=== PATIENT | male | born 1940 | race Two or more races ===

== ENCOUNTER → 2018-02-21 | Outpatient (CLI) | payer OTHER ==
[~2018-02-21] MED LIST: GADOBUTROL 10 ML VIAL IVP ONE
== END ==
LOC: FIMAGING 07:50
PROVIDERS: ATTEND Specialist
DX: N40.0 Benign prostatic hyperplasia without lower urinary tract symptoms (principal); M25.451 Effusion, right hip; M25.452 Effusion, left hip
CPT/HCPCS: 72197; 76377; A9585; 82565-PO